=== PATIENT | male | born 1965 | race Caucasian/White ===

== ENCOUNTER 2020-05-31 06:05 | Emergency (ER) | payer SELFPAY ==
[~2020-05-31] VITALS: Ht 182.9 cm; Wt 110.0 kg
--- NOTE | 2020-05-31 06:55 | NUR ---
pt from [facility] with history of chf, and copd. pt having increased sob, some swelling, and lightheadness. ekg done in triage, piv started, labs sent, pt on all monitors
[2020-05-31] MEDS ORDERED: SODIUM CHLORIDE FLUSH 10ML SYR IVF ONE (07:00)
[2020-05-31 07:02] LABS: BASOPHILS % (AUTO) 1 % (0-1); EOSINOPHILS % (AUTO) 2 % (1-7); LYMPHOCYTES % (AUTO) 24 % (22-44); MEAN CORPUSCULAR HEMOGLOBIN 26.3 pg (27.5-34.5); MEAN CORPUSCULAR HGB CONC 32.4 g/dL (33.2-36.2); MEAN PLATELET VOLUME 7.8 fL (7.4-10.4); MONOCYTES % (AUTO) 9 % (2-9); NEUTROPHILS % (AUTO) 64 % (42-75); PLATELET COUNT 306 x10^3/uL (130-400); RED BLOOD COUNT 3.81 x10^6/uL (4.38-5.82); RED CELL DISTRIBUTION WIDTH 16.3 % (9.4-14.8)
[2020-05-31 07:03] LABS: MD NO
--- NOTE | 2020-05-31 07:04 | NUR ---
report given to radha grant
[2020-05-31 07:11] LABS: ALANINE AMINOTRANSFERASE 18 U/L (12-78); ALBUMIN 2.3 g/dL (3.4-5.0); ANION GAP 8 mmol/L (5-15); CALCIUM 8.3 mg/dL (8.5-10.1); CHLORIDE 113 mmol/L (98-107); CREATININE 4.67 mg/dL (0.7-1.3)
[2020-05-31 07:12] VITALS: BP 179/109
--- NOTE | 2020-05-31 07:13 | NUR ---
pt does not recall medications he takes and does not have list.
[2020-05-31 07:15] LABS: ALKALINE PHOSPHATASE 134 U/L (45-117); BILIRUBIN,TOTAL 0.3 mg/dL (0.2-1.0); TOTAL PROTEIN 7.8 g/dL (6.4-8.2); TROPONIN I 0.059 ng/mL (0.000-0.045)
--- NOTE | 2020-05-31 07:24 | NUR ---
MT REPORTED PT DESATED TO 83% ON RA AND WAS PLACED ON 2 LITERS. HE IMMEDIATELY WENT UP TO 92 PERCENT ON 2 LITERS NC. WARM BLANKET PROVIDED.
--- NOTE | 2020-05-31 08:10 | NUR ---
PT WOKE UP AGITATED STATING HE WANTED TO LEAVE. HE WAS INFORMED OF HIS POSITIVE TROPONIN WITH INCREASED BUN/CREATININE BY [facility] RN. WILL NOTIFY MD OF HIS WISH TO LEAVE AND GET AMA FORM.
--- NOTE | 2020-05-31 08:15 | NUR ---
PT STATING HE WANTS TO "GET THE FUCK OUT OF HERE." IV REMOVED AND PT CALLED TO HAVE FRIEND PICK HIM UP. MD AWARE.
== END 2020-05-31 08:25 | disposition left against medical advice (07) ==
LOC: ED 08:19
DX: E11.22 Type 2 diabetes mellitus with diabetic chronic kidney disease (principal); I13.0 Hypertensive heart and chronic kidney disease with heart failure and stage 1 through stage 4 chronic kidney disease, or unspecified chronic kidney disease; N18.9 Chronic kidney disease, unspecified; I50.22 Chronic systolic (congestive) heart failure; R06.00 Dyspnea, unspecified; R77.8 Other specified abnormalities of plasma proteins
CPT/HCPCS: 36415; 71045; 80053; 83880; 84484; 85025; 93005; 99285